=== PATIENT | male | born 1995 | race Caucasian/White ===

== ENCOUNTER 2019-05-06 10:21 | Emergency (ER) | payer BC, OTHER ==
--- NOTE | 2019-05-06 10:33 | EDM.PDOC ---
ED HPI GENERAL MEDICAL PROBLEM - General Chief Complaint: Gastrointestinal Problem Stated Complaint: STOMACH PAIN, VOMITING BLOOD, PAIN IN BACK Time Seen by Provider: 05/06/19 10:29 Source of Information: Reports: Patient History Limitations: Reports: No Limitations - History of Present Illness INITIAL COMMENTS - FREE TEXT/NARRATIVE: HISTORY AND PHYSICAL: History of present illness: Patient is a 24-year-old male who presents to the emergency room with complaints of nausea, vomiting and generally feeling unwell. He states yesterday he started an sqkn-[id number] weight loss pill for the first time and proceeded that evening to drink heavily throughout the evening. He states this morning he started to develop upper thoracic back pain between his shoulder blades, nausea and vomiting. He was concerned as he did notice some red /orange discoloration in his emesis. He denies any trauma or injury of the back or blacking out or passing out yesterday or this morning. Patient denies any fever, chills, headache, change in vision, syncope or near syncope. Denies any chest pain, back pain, shortness of breath or cough. Denies any abdominal pain, nausea, vomiting, diarrhea, constipation or dysuria. Has not noted any blood in urine or stool. Patient has been eating and drinking appropriately. Review of systems: As per history of present illness and below otherwise all systems reviewed and negative. Past medical history: As per history of present illness and as reviewed below otherwise noncontributory. Surgical history: As per history of present illness and as reviewed below otherwise noncontributory. Social history: See social history for further information Family history: As per history of present illness and as reviewed below otherwise noncontributory. Physical exam: General: Well-developed and well-nourished 24-year-old male. Alert and oriented. Nontoxic appearing and in no acute distress. HEENT: Atraumatic, normocephalic, pupils equal and reactive bilaterally, negative for conjunctival pallor or scleral icterus, mucous membranes moist, TMs normal bilaterally, throat clear, neck supple, nontender, trachea midline. No drooling or trismus noted. No meningeal signs. No hot potato voice noted. Lungs: Clear to auscultation, breath sounds equal bilaterally, chest nontender. Heart: S1S2, regular rate and rhythm without overt murmur Abdomen: Soft, nondistended, nontender. Negative for masses. Negative for costovertebral tenderness. Pelvis: Stable nontender. Skin: Intact, warm, dry. No lesions or rashes noted. Extremities: Atraumatic, moves all extremities per self without difficulty or deficits, negative for cords or calf pain. Neurovascular unremarkable. Neuro: Awake, alert, oriented. Cranial nerves II through XII unremarkable. Cerebellum unremarkable. Motor and sensory unremarkable throughout. Exam nonfocal. Notes: Lab work is unremarkable. Patient was unable to give a urine sample and declines performing a UA as he does feel better. Vital signs are stable and have been reviewed by me. I will give him a prescription for Zofran. We discussed stopping the diet pills and limiting his alcohol use. Supportive care measures were reviewed and discussed. Voices understanding and is agreeable to plan of care. Denies any further questions or concerns at this time. Diagnostics: CBC, CMP, Lipase, H.Pylori, UA Therapeutics: IV fluids, Zofran Prescription: Zofran Impression: Nausea and vomiting Encounter for medical screening Plan: 1. Please stop the [id number]-[id number] diet pill and avoid all stimulants over the next 24 hours. 2. Small frequent sips of fluids to prevent dehydration. You may use the Zofran as needed. 3. Follow-up with your primary care provider as we discussed. Return to the ED as needed and as discussed. Definitive disposition and diagnosis as appropriate pending reevaluation and review of above. mid upper back Pain Score (Numeric/FACES): 6 - Related Data Allergies Allergy/AdvReac Type Severity Reaction Status Date / Time No Known Allergies Allergy Verified 05/06/19 10:36 Home Meds: Home Meds Ondansetron [Zofran ODT] 4 mg PO Q6H PRN #8 tab.dis 05/06/19 [Rx] ED ROS GENERAL - Review of Systems Review Of Systems: ROS reveals no pertinent complaints other than HPI. ED EXAM, GI/ABD - Physical Exam Exam: See Below (See dictation) Course - Vital Signs Last Recorded V/S: Last Vital Signs Temp 96.5 F 05/06/19 10:37 Pulse 99 05/06/19 10:37 Resp 18 05/06/19 10:37 BP 146/84 H 05/06/19 10:37 Pulse Ox 100 05/06/19 10:37 - Orders/Labs/Meds Orders: Active Orders 24 hr Category Date Time Status EKG Documentation Completion [RC] STAT Care 05/06/19 10:40 Active UA RFX JOSE AND CULT IF INDIC [URIN] Stat Lab 05/06/19 10:40 Ordered Sodium Chloride 0.9% [Normal Saline] 1,000 ml Med 05/06/19 10:40 Active IV STAT Medication Orders Sodium Chloride (Normal Saline) 1,000 mls @ 999 mls/hr IV STAT ONE Stop: 05/06/19 11:40 Last Admin: 05/06/19 10:54 Dose: 999 mls/hr Labs: Laboratory Tests 05/06/19 05/06/19 05/06/19 Range/Units 10:50 10:50 10:50 WBC 6.65 (4.0-11.0) K/uL RBC 5.34 (4.50-5.90) M/uL Hgb 15.4 (13.0-17.0) g/dL Hct 44.9 (38.0-50.0) % MCV 84.1 (80.0-98.0) fL MCH 28.8 (27.0-32.0) pg MCHC 34.3 (31.0-37.0) g/dL RDW Std Deviation 38.1 (28.0-62.0) fl RDW Coeff of Stephanie 13 (11.0-15.0) % Plt Count 251 (150-400) K/uL MPV 9.40 (7.40-12.00) fL Neut % (Auto) 73.2 (48.0-80.0) % Lymph % (Auto) 19.7 (16.0-40.0) % [place] % (Auto) 6.5 (0.0-15.0) % Eos % (Auto) 0.3 (0.0-7.0) % Baso % (Auto) 0.3 (0.0-1.5) % Neut # (Auto) 4.9 (1.4-5.7) K/uL Lymph # (Auto) 1.3 (0.6-2.4) K/uL [place] # (Auto) 0.4 (0.0-0.8) K/uL Eos # (Auto) 0.0 (0.0-0.7) K/uL Baso # (Auto) 0.0 (0.0-0.1) K/uL Nucleated RBC % 0.0 /100WBC Nucleated RBCs # 0 K/uL Sodium 137 (136-148) mmol/L Potassium 4.1 (3.5-5.1) mmol/L Chloride 104 (98-107) mmol/L Carbon Dioxide 21.6 (21.0-32.0) mmol/L BUN 22 H (7.0-18.0) mg/dL Creatinine 1.2 (0.8-1.3) mg/dL Est Cr Clr Drug Dosing 94.10 mL/min Estimated GFR (MDRD) > 60.0 ml/min Glucose 108 H (74-106) mg/dL Calcium 9.1 (8.5-10.1) mg/dL Total Bilirubin 1.5 H (0.2-1.0) mg/dL AST 26 (15-37) IU/L ALT 32 (14-63) IU/L Alkaline Phosphatase 102 (46-116) U/L Total Protein 8.0 (6.4-8.2) g/dL Albumin 4.9 (3.4-5.0) g/dL Globulin 3.1 (2.6-4.0) g/dL Albumin/Globulin Ratio 1.6 (0.9-1.6) Lipase 118 (73-393) U/L H. pylori IgG Antibody NEGATIVE (NEG) Meds: Medications Generic Name Dose Route Start Last Admin Trade Name Freq PRN Reason Stop Dose Admin Sodium Chloride 1,000 mls @ 999 mls/hr 05/06/19 10:40 05/06/19 10:54 Normal Saline IV 05/06/19 11:40 999 mls/hr STAT ONE Administration Discontinued Medications Generic Name Dose Route Start Last Admin Trade Name Freq PRN Reason Stop Dose Admin Al Hydroxide/Mg Hydroxide 15 0 ml 05/06/19 10:42 05/06/19 11:29 ml/ Metoclopramide HCl 5 mg/ PO 05/06/19 10:43 1 each Lidocaine HCl 5 ml ONETIME ONE Administration Ondansetron HCl 4 mg 05/06/19 10:40 05/06/19 10:54 Zofran IVPUSH 05/06/19 10:41 4 mg ONETIME ONE Administration Departure - Departure Time of Disposition: 11:32 Disposition: Home, Self-Care 01 Clinical Impression: Encounter for medical screening examination Nausea and vomiting Qualifiers: Vomiting type: unspecified Vomiting Intractability: non-intractable Qualified Code(s): R11.2 - Nausea with vomiting, unspecified - Discharge Information Prescriptions: Ondansetron [Zofran ODT] 4 mg PO Q6H PRN #8 tab.dis PRN Reason: Nausea Instructions: Nausea and Vomiting, Adult, [id number] Referrals: PCP,Unknown [Primary Care Provider] - Forms: ED Department Discharge Additional Instructions: The following information is given to patients seen in the emergency department who are being discharged to home. This information is to outline your options for follow-up care. We provide all patients seen in our emergency department with a follow-up referral. The need for follow-up, as well as the timing and circumstances, are variable depending upon the specifics of your emergency department visit. If you don't have a primary care physician on staff, we will provide you with a referral. We always advise you to contact your personal physician following an emergency department visit to inform them of the circumstance of the visit and for follow-up with them and/or the need for any referrals to a consulting specialist. The emergency department will also refer you to a specialist when appropriate. This referral assures that you have the opportunity for follow-up care with a specialist. All of these measure are taken in an effort to provide you with optimal care, which includes your follow-up. Under all circumstances we always encourage you to contact your private physician who remains a resource for coordinating your care. When calling for follow-up care, please make the office aware that this follow-up is from your recent emergency room visit. If for any reason you are refused follow-up, please contact the [facility] Emergency Department at and asked to speak to the emergency department charge nurse. [facility] [address] [place] [id number] [facility] [address] [place] [address] 1. Please stop the [id number] diet pill and avoid all stimulants over the next 24 hours. 2. Small frequent sips of fluids to prevent dehydration. You may use the Zofran as needed. 3. Follow-up with your primary care provider as we discussed. Return to the ED as needed and as discussed. - My Orders Last 24 Hours: My Active Orders 05/06/19 10:40 EKG Documentation Completion [RC] STAT UA RFX JOSE AND CULT IF INDIC [URIN] Stat Sodium Chloride 0.9% [Normal Saline] 1,000 ml IV STAT - Assessment/Plan Last 24 Hours: My Active Orders 05/06/19 10:40 EKG Documentation Completion [RC] STAT UA RFX JOSE AND CULT IF INDIC [URIN] Stat Sodium Chloride 0.9% [Normal Saline] 1,000 ml IV STAT
[2019-05-06] MEDS ORDERED: Sodium Chloride 0.9% 1,000 ML IV ONE (10:40)
[2019-05-06] MEDS ORDERED: Ondansetron 4 MG/2 ML SDV IVPUSH ONE (10:40)
[2019-05-06] MEDS ORDERED: Alum Hydrox/Mag Hydrox/Simeth 15 ML, Metoclopramide 5 MG, Lidocaine 2% 5 ML PO ONE ×3 (10:42)
--- NOTE | 2019-05-06 11:21 | CR ---
INDICATION: Pain TECHNIQUE: Portable AP radiograph of the chest COMPARISON: None FINDINGS AND IMPRESSION: Cardiomediastinal silhouette: Within normal limits. Lungs and pleural spaces: No focal consolidation. No pulmonary edema. No pleural effusion or pneumothorax. Dictated by Nadine Fernandez MD @ 05/06/2019 11:19:41 AM Dictated by: Nadine Fernandez MD @ 05/06/2019 11:19:49 (Electronically Signed)
[2019-05-06 11:22] LABS: CHLORIDE,CL 104 mmol/L (98-107); SODIUM,NA 137 mmol/L (136-148)
== END 2019-05-06 11:59 | disposition home or self-care (01) ==
LOC: MW.ED 10:21
DX: R11.2 Nausea with vomiting, unspecified (principal); M54.6 Pain in thoracic spine
CPT/HCPCS: 36415; 71045; 80053; 83690; 85025; 86677; 93005; 96361; 96374; 99284; A9270; J2405; J7040; 99283